=== PATIENT | male | born 1970 | race Caucasian/White ===

== ENCOUNTER 2017-09-26 10:41 | Outpatient (CLI) | payer BC ==
--- NOTE | 2017-09-26 12:11 | XRAY Report ---
THREE-VIEW LEFT FIFTH FINGER: 09/26/2017 CLINICAL INDICATION: Sprain, pain. FINDINGS: AP, lateral, oblique views of the left fifth finger demonstrate no evidence of fracture or dislocation. The joint spaces are preserved. No radiopaque foreign body is seen in the soft tissue s. IMPRESSION: NORMAL LEFT FIFTH FINGER. JOB #: [id number] EXT JOB #:[id number]
== END 2017-09-26 10:42 | disposition home or self-care (01) ==
LOC: DI 10:41
PROVIDERS: ATTEND Family Medicine
DX: S63.697A Other sprain of left little finger, initial encounter (principal)
CPT/HCPCS: 73140

== ENCOUNTER 2018-01-31 10:18 | Outpatient (CLI) | payer OTHER ==
[2018-01-31 18:23] LABS: BUN - BLOOD UREA NITROGEN 22 mg/dL (6-20); CALCIUM 9.3 mg/dL (8.5-10.3); CARBON DIOXIDE - CO2 28 mmol/L (21-32); CHLORIDE 103 mmol/L (101-111); CHOL/HDL RATIO 4.3 (<5.0); CHOLESTEROL 152 mg/dL; CREATININE 1.2 mg/dL (0.6-1.2); GFR - MDRD 64 (>89); GLUCOSE 81 mg/dL (70-100); HDL CHOLESTEROL 35 mg/dL; LDL CHOLESTEROL,CALCULATED 106 mg/dL; SODIUM 137 mmol/L (135-145); VLDL CHOLESTEROL 11 mg/dL
== END 2018-01-31 10:19 | disposition home or self-care (01) ==
LOC: LAB.F 10:18
PROVIDERS: ATTEND Internal Medicine
DX: Z00.00 Encounter for general adult medical examination without abnormal findings (principal)
CPT/HCPCS: 36415; 80048; 80061; 83721

== ENCOUNTER 2022-02-21 07:16 | Outpatient (CLI) | payer BC ==
[2022-02-21 14:36] LABS: BASOPHILS # (AUTO) 0.1 10^3/uL (0.0-0.1); BASOPHILS % (AUTO) 1.2 %; EOSINOPHILS # (AUTO) 0.1 10^3/uL (0.0-0.7); EOSINOPHILS % (AUTO) 1.4 %; HCT - HEMATOCRIT 45.6 % (42.0-52.0); HGB - HEMOGLOBIN 15.5 g/dL (14.0-18.0); LYMPHOCYTES # (AUTO) 0.9 10^3/uL (1.5-3.5); LYMPHOCYTES % (AUTO) 18.1 %; MEAN CORPUSCULAR HEMOGLOBIN 31.6 pg (27.0-31.0); MEAN CORPUSCULAR VOLUME 93.1 fL (80.0-94.0); MEAN PLATELET VOLUME 9.8 fL (7.4-11.4); MONOCYTES # (AUTO) 0.4 10^3/uL (0.0-1.0); MONOCYTES % (AUTO) 8.2 %; NEUTROPHILS # (AUTO) 3.6 10^3/uL (1.5-6.6); NEUTROPHILS % (AUTO) 70.9 %; PLT - PLATELET COUNT 232 10^3/uL (130-450); RED CELL DISTRIBUTION WIDTH 12.1 % (12.0-15.0); WHITE BLOOD COUNT 5.1 x10^3/uL (4.8-10.8)
[2022-02-21 15:26] LABS: THYROID STIMULATING HORMONE 1.35 uIU/mL (0.34-5.60)
[2022-02-21 15:36] LABS: ALBUMIN 4.3 g/dL (3.2-5.5); ALBUMIN/GLOBULIN RATIO 1.9 (1.0-2.2); ALKALINE PHOSPHATASE 54 IU/L (42-121); ALT ALANINE AMINOTRANSFERASE 19 IU/L (10-60); AST ASPARTATE AMINOTRANSFERASE 26 IU/L (10-42); BILIRUBIN,TOTAL 1.4 mg/dL (0.2-1.0); BUN - BLOOD UREA NITROGEN 16 mg/dL (6-20); CALCIUM 9.4 mg/dL (8.5-10.3); CARBON DIOXIDE - CO2 28 mmol/L (21-32); CHLORIDE 102 mmol/L (101-111); CHOL/HDL RATIO 3.6 (<5.0); CHOLESTEROL 142 mg/dL; CREATININE 1.1 mg/dL (0.6-1.2); GFR - MDRD 70 (>89); GLUCOSE 90 mg/dL (70-100); HDL CHOLESTEROL 39 mg/dL; LDL CHOLESTEROL,CALCULATED 94 mg/dL; LDL/HDL RATIO 2.4 (<3.6); POTASSIUM 4.3 mmol/L (3.5-5.0); SODIUM 136 mmol/L (135-145); TOTAL PROTEIN 6.6 g/dL (6.7-8.2); TRIGLYCERIDES 47 mg/dL; VLDL CHOLESTEROL 9 mg/dL
[2022-02-22 09:42] LABS: HEPATITIS C ANTIBODY NON-REACTIVE (NON-REACTIVE)
[2022-02-22 13:07] LABS: HIV AG/AB 4TH GEN NON-REACTIVE (NON-REACTIVE)
== END 2022-02-21 07:17 | disposition home or self-care (01) ==
LOC: LAB.S 07:16
PROVIDERS: ATTEND Registered Nurse
DX: Z00.00 Encounter for general adult medical examination without abnormal findings (principal); Z13.228 Encounter for screening for other metabolic disorders; E78.6 Lipoprotein deficiency; Z12.5 Encounter for screening for malignant neoplasm of prostate; Z13.29 Encounter for screening for other suspected endocrine disorder; Z13.0 Encounter for screening for diseases of the blood and blood-forming organs and certain disorders involving the immune mechanism
CPT/HCPCS: 36415; 80053; 80061; 83721; 84153; 84443; 85025; 86803; 87389

== ENCOUNTER 2022-04-19 08:00 | Outpatient (CLI) | payer BC, OTHER ==
--- NOTE | 2022-04-25 11:58 | XRAY Report ---
PROCEDURE: Foot 3 View LT INDICATIONS: PAIN IN LEFT FOOT. Crush injury great toe MTP joint. TECHNIQUE: 3 views of the foot were acquired. COMPARISON: None. FINDINGS: Bones: Bipartite appearance of the great toe sesamoids, corticated margins difficult to identify. Oth erwise no acute fractures or dislocations. No suspicious bony lesions. Soft tissues: No tibiotalar joint effusion. IMPRESSION: Bipartite appearance of the great toe sesamoids. The absence of definitive corticated margins along t he sesamoid fragments raises the possibility of acute sesamoid fracture in the setting of recent trau ma to this area, however normal variant anatomy bipartite appearance of the sesamoids is also possibl e. If clinically indicated, follow-up radiographs, CT, or MRI could be obtained for further evaluatio n. Reviewed by: Abhinav De La Paz MD on 04/19/2022 1:36 PM PDT Approved by: Abhinav De La Paz MD on 04/19/2022 1:36 PM PDT Station ID: [id number]
== END 2022-04-19 23:59 | disposition home or self-care (01) ==
LOC: DI.S 08:00
PROVIDERS: ATTEND Registered Nurse
DX: S97.82XA Crushing injury of left foot, initial encounter (principal); M79.672 Pain in left foot

== ENCOUNTER 2022-04-27 09:10 | Outpatient (CLI) | payer OTHER ==
--- NOTE | 2022-04-27 10:07 | CT Report ---
PROCEDURE: LOWER EXTREMITY WO - LT INDICATIONS: CRUSHING INJURY LT FOOT TECHNIQUE: Noncontrast 3-mm axial sections acquired from the distal tibial shaft to the talar dome, with coronal and sagittal reformats. For radiation dose reduction, the following was used: automated exposure c ontrol, adjustment of mA and/or kV according to patient size. COMPARISON: None. FINDINGS: Image quality: Excellent. Bones: No fracture or dislocation. There is a bipartite appearance of the great toe sesamoids. Both sesamoids have subacute transverse fractures. Mild degenerative changes of the remaining foot bones a re identified. Soft tissues: Normal. No radiopaque foreign bodies. Impression: Subacute transverse fractures of the sesamoid bones of the great toe. Reviewed by: Jesse Moscoso on 04/27/2022 10:06 AM [facility] Approved by: Jesse Moscoso on 04/27/2022 10:06 AM [facility] Station ID: [id number]
== END 2022-04-27 09:11 | disposition home or self-care (01) ==
LOC: DI 09:10
PROVIDERS: ATTEND Registered Nurse
DX: S92.402A Displaced unspecified fracture of left great toe, initial encounter for closed fracture (principal)

== ENCOUNTER 2022-11-10 17:06 | Outpatient (CLI) | payer OTHER ==
--- NOTE | 2022-11-10 21:03 | XRAY Report ---
PROCEDURE: Lumbar Spine 2 View INDICATIONS: LOW BACK PAIN TECHNIQUE: 2 views of the lumbar spine were acquired. COMPARISON: None. FINDINGS: Bones: 5 [id number] vertebrae are present. There is normal bony alignment. No vertebral body compression fractures. No suspicious bony lesions. Mild disc space narrowing predominantly at the L 4-5 and L5-S1 levels. Mild multilevel facet hypertrophy. Soft tissues: Overlying bowel gas pattern is normal. No suspicious soft tissue calcifications. IMPRESSION: Mild multilevel spondylosis. Lumbar spine MRI could be performed for further evaluation if indicated clinically. Reviewed by: Abhinav Sanchez MD on 11/10/2022 9:01 PM [facility] Approved by: Abhinav Sanchez MD on 11/10/2022 9:01 PM [facility] Station ID: [id number]
--- NOTE | 2022-11-10 21:04 | XRAY Report ---
PROCEDURE: Shoulder 3 View RT INDICATIONS: RIGHT SHOULDER PAIN TECHNIQUE: 3 views of the shoulder were acquired. COMPARISON: None. FINDINGS: Bones: No acute fractures or dislocations. No suspicious bony lesions. Visualized ribs appear inta ct. Mild glenohumeral and acromioclavicular degenerative changes. Soft tissues: No suspicious soft tissue calcifications. IMPRESSION: Mild glenohumeral and acromioclavicular joint osteoarthrosis. No acute osseous abnormali ty. If symptoms persist or there is continued clinical concern, further evaluation with MRI or CT may be helpful. Reviewed by: Abhinav Sanchez MD on 11/10/2022 9:03 PM PST Approved by: Abhinav Sanchez MD on 11/10/2022 9:03 PM PST Station ID: [id number]
== END 2022-11-10 23:59 | disposition home or self-care (01) ==
LOC: DI.S 17:06
PROVIDERS: ATTEND Physician Assistant Medical
DX: M47.816 Spondylosis without myelopathy or radiculopathy, lumbar region (principal); M19.011 Primary osteoarthritis, right shoulder

== ENCOUNTER 2023-01-11 16:34 | Outpatient (CLI) | payer OTHER ==
--- NOTE | 2023-01-11 17:53 | XRAY Report ---
PROCEDURE: Shoulder 3 View LT INDICATIONS: LEFT SHOULDER PAIN TECHNIQUE: 4 views of the shoulder were acquired. COMPARISON: None. FINDINGS: Bones: No acute fractures or dislocations. No suspicious bony lesions. Visualized ribs appear inta ct. Mild degenerative changes of the left acromioclavicular and glenohumeral joints. Soft tissues: No suspicious soft tissue calcifications. IMPRESSION: Left shoulder without acute fracture or dislocation. Mild degenerative changes of the le ft acromioclavicular and glenohumeral joints. Reviewed by: Alexandro Haney MD on 01/11/2023 4:52 PM [facility] Approved by: Alexandro Haney MD on 01/11/2023 4:52 PM [facility] Station ID: [id number]
--- NOTE | 2023-01-11 17:55 | XRAY Report ---
PROCEDURE: Shoulder 1 View RT INDICATIONS: RIGHT SHOULDER PAIN TECHNIQUE: 1 views of the shoulder were acquired. COMPARISON: 11/10/2022. FINDINGS: Bones: Single axillary view of the right shoulder was obtained. Normal glenohumeral joint alignment. Degenerative changes of the glenohumeral joint. No acute fractures seen. Soft tissues: No suspicious soft tissue calcifications. IMPRESSION: Single axillary view of the right shoulder demonstrating normal alignment and glenohumer al joint degenerative change. Reviewed by: Alexandro Haney MD on 01/11/2023 4:53 PM [facility] Approved by: Alexandro Haney MD on 01/11/2023 4:53 PM [facility] Station ID: [id number]
== END 2023-01-11 16:46 | disposition home or self-care (01) ==
LOC: DI.WOS 16:34
PROVIDERS: ATTEND Physician Assistant Surgical
DX: M19.011 Primary osteoarthritis, right shoulder (principal); M19.012 Primary osteoarthritis, left shoulder

== ENCOUNTER 2023-01-31 12:42 | Outpatient (CLI) | payer OTHER ==
--- NOTE | 2023-01-31 15:47 | MRI Report ---
PROCEDURE: SHOULDER WO - RT INDICATIONS: RIGHT SHOULDER INJURY TECHNIQUE: Noncontrast oblique coronal T2 fast spin echo with fat saturation, oblique sagittal T1 spin echo and T2 fast spin echo with fat saturation, axial T1 spin echo and T2 fast spin echo with fat saturation a nd axial 3-D gradient echo through the shoulder. COMPARISON: Right shoulder radiographs 11/10/2022 FINDINGS: Image quality: Excellent. Rotator cuff: There is moderate grade partial bursal sided tearing of the supraspinatus tendon at the anterior footprint measuring 0.8 cm in anteroposterior dimension superimposed on moderate supraspina tus and infraspinatus tendinosis. The teres minor and subscapularis tendons are intact. There is no s ignificant rotator cuff muscle atrophy. Bones and bursae: No acute trabecular bone injury. Chronic cystic changes are seen at the posterosupe rior humeral head. There is moderate partial-thickness cartilage irregularity in the superior and pos terior glenoid and in the superomedial humeral head. Small marginal osteophytes are present. Mild to moderate degenerative changes are seen at the acromioclavicular joint. There is a trace amount of sub acromial/subdeltoid bursal fluid. No significant glenohumeral effusion. Capsule and soft tissues: Mild labral degeneration is seen without a focal displaced labral tear. The re is mild proximal biceps long head tendinosis. Partial effacement of the normal fat signal is noted in the rotator interval. There is thickening of the anterior band of the inferior glenohumeral ligam ent. IMPRESSION: 1.Moderate partial bursal surface tearing of the supraspinatus tendon at the anterior footprint measu ring 0.8 cm in anteroposterior dimension. Moderate supraspinatus and infraspinatus tendinosis. 2.Mild tendinosis of the proximal biceps long head tendon. 3.Mild labral degeneration without a discrete tear. 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 4.Mild to moderate acromioclavicular joint osteoarthrosis. 5.Partial effacement of the rotator interval fat and mild thickening of the inferior glenohumeral lig ament are nonspecific, but can be seen in the setting of the clinical syndrome of adhesive capsulitis . Reviewed by: Abhinav Sanchez MD on 01/31/2023 3:46 PM PDT Approved by: Abhinav Sanchez MD on 01/31/2023 3:46 PM PDT Station ID: [id number]
== END 2023-01-31 12:43 | disposition home or self-care (01) ==
LOC: DI 12:42
PROVIDERS: ATTEND Physician Assistant Surgical
DX: S46.021A Laceration of muscle(s) and tendon(s) of the rotator cuff of right shoulder, initial encounter (principal); M67.813 Other specified disorders of tendon, right shoulder; M94.211 Chondromalacia, right shoulder; M19.011 Primary osteoarthritis, right shoulder